=== PATIENT | male | born 1985 | race Two or more races ===

== ENCOUNTER 2018-07-01 11:50 | Emergency (ER) | payer OTHER ==
[2018-07-01 12:06] VITALS: BP 123/71; PULSE 62; TEMP 98.1; BMI 36.9
--- NOTE | 2018-07-01 12:18 | PDOC ---
History of Present Illness - General Chief Complaint: Pain Stated Complaint: RT ARM PAIN Time Seen by Provider: 07/01/18 12:10 History Source: Patient Exam Limitations: No Limitations - History of Present Illness Initial Comments: 07/01/18 12:13 32-year-old male presents emergency departments with chronic right shoulder pain and right wrist pain. Patient states she is under the care of a doctor in the [place] who handles Worker's Compensation and is scheduled for an MRI on Wednesday. Patient is to follow-up with his doctor after the MRI on Wednesday. Patient states presents to the emergency department for extension of work note as he is unable to contact his physician in the [place]. Patient states she's been taking Tylenol [id number] for both the pain in his shoulder and wrist which is helping with his pain. Currently rates his pain of 2/10 and is not requesting any medical intervention at this time. Past History - Past Medical History Allergies/Adverse Reactions: Allergies Allergy/AdvReac Type Severity Reaction Status Date / Time No Known Allergies Allergy Verified 07/01/18 12:06 Home Medications: Ambulatory Orders Acetaminophen [Tylenol] 650 mg PO QID PRN 07/01/18 COPD: No - Suicide/Smoking/Psychosocial Hx Smoking History: Never smoked Review of Systems - Review of Systems Able to Perform ROS?: Yes Is the patient limited Citizen [place] proficient: No Constitutional: No: Symptoms Reported HEENTM: No: Symptoms Reported Respiratory: No: Symptoms reported Cardiac (ROS): No: Symptoms Reported ABD/GI: No: Symptoms Reported : No: Symptoms Reported Musculoskeletal: Yes: See HPI Integumentary: No: Symptoms Reported Neurological: No: Symptoms reported *Physical Exam - Vital Signs Last Vital Signs Temp Pulse Resp BP Pulse Ox 98.1 F 62 16 123/71 99 07/01/18 12:04 07/01/18 12:04 07/01/18 12:04 07/01/18 12:04 07/01/18 12:04 - Physical Exam General Appearance: Yes: Appropriately Dressed. No: Apparent Distress HEENT: positive: Normal ENT Inspection Neck: positive: Trachea midline, Supple Musculoskeletal: positive: Normal Inspection, Decreased Range of Motion (right shoulder). negative: CVA Tenderness Extremity: positive: Normal Inspection, Tender (dorsum of the right wrist). negative: Normal Range of Motion (Decreased abduction of the right shoulder) Medical Decision Making - Medical Decision Making 07/01/18 12:20 A/P: 32-year-old male with right shoulder and wrist pain Tenderness to palpation of the dorsum of the right wrist Able to flex and extends wrist against resistance Strength 5/5 and right wrist Limited range of motion of the right shoulder with abduction X-rays negative on previous visit. I will defer reimaging at this time. Patient are he has follow-up appointment for MRI of his wrist. Patient is refusing pain medication at this time as Tylenols been helpful with pain relief at home. I will discharge the patient home to follow-up with his primary doctor for continued evaluation. Patient was satisfied with his care and is in agreement with the current plan. *DC/Admit/Observation/Transfer Diagnosis at time of Disposition: Wrist pain, right Shoulder pain, right Qualifiers: Chronicity: acute Qualified Code(s): M25.511 - Pain in right shoulder - Discharge Dispostion Disposition: HOME Condition at time of disposition: Stable Decision to Admit order: No - Referrals - Patient Instructions Additional Instructions: Keep her scheduled appointment with your physician on Wednesday. Make sure he get her MRI for reevaluation of wrist pain. If you require more time off of work, you must contact your treating physician. Return to emergency department for any concerns. - Post Discharge Activity Forms/Work/School Notes: Back to Work
== END 2018-07-01 12:36 | disposition home or self-care (01) ==
LOC: JERFT 11:50
DX: S49.81XD Other specified injuries of right shoulder and upper arm, subsequent encounter (principal); Y35.811D Legal intervention involving manhandling, law enforcement official injured, subsequent encounter
CPT/HCPCS: 99281-25